=== PATIENT | female | born 1995 | race Asian ===

== ENCOUNTER 2024-03-25 15:53 | Outpatient (CLI) | payer OTHER ==
[2024-03-25 16:22] LABS: BASOPHILS % (AUTO) 0.3 %; EOSINOPHILS # (AUTO) 0.4 10^3/uL (0.0-0.7); HCT - HEMATOCRIT 30.1 % (37.0-47.0); HGB - HEMOGLOBIN 10.3 g/dL (12.0-16.0); LYMPHOCYTES # (AUTO) 2.9 10^3/uL (1.5-3.5); LYMPHOCYTES % (AUTO) 29.5 %; MEAN CORPUSCULAR HEMOGLOBIN 31.2 pg (27.0-31.0); MEAN CORPUSCULAR HGB CONC 34.2 g/dL (32.0-36.0); MEAN CORPUSCULAR VOLUME 91.2 fL (81.0-99.0); MEAN PLATELET VOLUME 8.8 fL (7.9-10.8); MONOCYTES # (AUTO) 0.5 10^3/uL (0.0-1.0); MONOCYTES % (AUTO) 5.2 %; NEUTROPHILS # (AUTO) 5.9 10^3/uL (1.5-6.6); NEUTROPHILS % (AUTO) 60.7 %; PLT - PLATELET COUNT 294 10^3/uL (130-450); WHITE BLOOD COUNT 9.8 x10^3/uL (4.8-10.8)
[2024-03-25 16:29] LABS: BILIRUBIN,URINE NEGATIVE (NEGATIVE); GLUCOSE, URINE (UA) NEGATIVE (NEGATIVE); KETONES,URINE (UA) NEGATIVE (NEGATIVE); LEUKOCYTE ESTERASE, URINE NEGATIVE (NEGATIVE); NITRITE,URINE NEGATIVE (NEGATIVE); OCCULT BLOOD,URINE NEGATIVE (NEGATIVE); PH,URINE 6.5 PH (5.0-7.5); PROTEIN,URINE NEGATIVE (NEGATIVE); UROBILINOGEN,URINE 0.2 (NORMAL) E.U./dL (NORMAL)
[2024-03-25 16:36] LABS: CLARITY,URINE CLEAR (CLEAR)
[2024-03-25 16:44] LABS: RBC,URINE None Seen /HPF (0-5); SQUAMOUS EPITHELIAL CELL,UR FEW Squamous (<= Few); WBC,URINE 0-3 /HPF (0-5)
[2024-03-25 16:45] LABS: BACTERIA,URINE None Seen /HPF (None Seen)
[2024-03-26 01:09] LABS: HIV SCREEN 4TH GENERATION Non Reactive (Non Reactive)
[2024-03-26 04:10] LABS: HBsAG SCREEN Negative (Negative)
[2024-03-26 05:15] LABS: RPR Non Reactive (Non Reactive)
[2024-03-26 09:11] LABS: VARICELLA-ZOSTER AB IGG 159 index (Immune >165)
[2024-03-26 23:09] LABS: HCV AB Non Reactive (Non Reactive)
== END 2024-03-25 15:54 | disposition home or self-care (01) ==
LOC: LAB 15:53
PROVIDERS: ATTEND Obstetrics & Gynecology
DX: Z34.00 Encounter for supervision of normal first pregnancy, unspecified trimester (principal); Z36.89 Encounter for other specified antenatal screening
CPT/HCPCS: 36415; 81001; 85025; 86592; 86762; 86787; 86803; 86850; 86900; 86901; 87086; 87340; 87389

== ENCOUNTER 2024-03-26 17:11 | Outpatient (CLI) | payer OTHER ==
--- NOTE | 2024-03-27 07:10 | Ultrasound Report ---
PROCEDURE: OB 1st Trimester w/TV INDICATIONS: POSITIVE TEST OUTSIDE/PRIOR DATING DATA: Last menstrual period (LMP): 01/25/2024. LMP-based estimated date of delivery (JEANETTE): 10/31/2024. First dating scan (date and location): Today's exam. Estimated date of delivery (JEANETTE) from first dating scan: 11/08/2024. TECHNIQUE: Real-time scanning was performed of the fetus and maternal pelvic organs, with image documentation. Endovaginal scanning was also performed to better visualize the fetus and maternal ovaries. COMPARISON: None. FINDINGS: Intrauterine gestational sac present. Embryo: Present, measuring 1.28 cm, corresponding to 7 weeks 4 days Heart rate: 157 bpm. Other: Small perigestational hemorrhage measuring 1.1 x 0.6 x 1.5 cm. Measurement variability in dating: +/- 4 weeks by LMP, +/- 7 days by mean sac diameter (use before 6 weeks gestation if crown-rump length not able to be measured), +/- 5 days by crown-rump length (6-12 weeks gestation). Maternal organs: Ovaries demonstrate a right-sided corpus luteum. IMPRESSION: Single living intrauterine at 7 weeks 4 days, JEANETTE of 11/08/2024 based on today's exam. Small perigestational hemorrhage. Reviewed by: Jak Henrdix MD on 03/27/2024 7:09 AM PDT Approved by: Jak Hendrix MD on 03/27/2024 7:09 AM PDT Station ID: [id number]
== END 2024-03-26 17:12 | disposition home or self-care (01) ==
LOC: DI 17:11
PROVIDERS: ATTEND Obstetrics & Gynecology
DX: O20.8 Other hemorrhage in early pregnancy (principal); Z3A.01 Less than 8 weeks gestation of pregnancy

== ENCOUNTER 2024-04-20 08:00 | Outpatient (CLI) | payer OTHER ==
[2024-04-20 20:57] LABS: CHLAMYDIA TRACHOMATIS DNA NEGATIVE (NEGATIVE); NEISSERIA GONORRHOEAE DNA NEGATIVE (NEGATIVE); TRICHOMONAS VAGINALIS DNA NEGATIVE (NEGATIVE)
== END 2024-04-20 23:59 | disposition home or self-care (01) ==
LOC: LAB.WC 08:00
PROVIDERS: ATTEND Obstetrics & Gynecology
DX: Z11.3 Encounter for screening for infections with a predominantly sexual mode of transmission (principal)
CPT/HCPCS: 87491; 87591; 87661

== ENCOUNTER 2024-04-21 12:21 | Outpatient (CLI) | payer OTHER | END 2024-04-21 12:22 | disposition home or self-care (01) | LOC: LAB 12:21 | PROVIDERS: ATTEND Obstetrics & Gynecology | DX: O99.011 Anemia complicating pregnancy, first trimester (principal) | CPT/HCPCS: 36415; 81599; 82728 ==

== ENCOUNTER 2024-05-17 13:47 | Outpatient (CLI) | payer OTHER ==
[2024-05-17 14:06] LABS: HCT - HEMATOCRIT 33.3 % (37.0-47.0); RED BLOOD COUNT 3.65 10^6/uL (4.20-5.40); RETICULOCYTE COUNT % (AUTO) 2.47 % (0.5-2.3)
[2024-05-17 14:25] LABS: ALBUMIN 4.5 g/dL (3.2-5.5); ALBUMIN/GLOBULIN RATIO 1.6 (1.0-2.2); BILIRUBIN,TOTAL 0.2 mg/dL (0.2-1.0); CALCIUM 9.7 mg/dL (8.5-10.3); CREATININE 0.7 mg/dL (0.6-1.3); POTASSIUM 4.1 mmol/L (3.5-4.5); TOTAL PROTEIN 7.3 g/dL (6.4-8.9)
[2024-05-17 14:35] LABS: THYROID STIMULATING HORMONE 2.51 uIU/mL (0.34-5.60)
[2024-05-17 20:54] LABS: ESTIMATED AVERAGE GLUCOSE 103 mg/dL (70-100); HEMOGLOBIN A1c% 5.2 % (4.27-6.07)
== END 2024-05-17 13:48 | disposition home or self-care (01) ==
LOC: LAB 13:47
PROVIDERS: ATTEND Obstetrics & Gynecology
DX: O99.012 Anemia complicating pregnancy, second trimester (principal)
CPT/HCPCS: 36415; 80053; 82105; 82607; 82746; 83036; 84443; 85014; 85045

== ENCOUNTER 2024-11-03 15:16 | Inpatient (IN) ==
[2024-11-03] MEDS ORDERED: miSOPROStoL 200 MCG TABLET BC PRN (16:30)
[2024-11-03] MEDS ORDERED: fentaNYL 100 MCG/2 ML VIAL IVP PRN (16:30)
[2024-11-03] MEDS ORDERED: NIFEdipine 10 MG CAPSULE PO PRN (16:30)
[2024-11-03] MEDS ORDERED: SODIUM CHLORIDE FLUSH 0.9% 10 ML SYRINGE IVP PRN (16:30)
[2024-11-03] MEDS ORDERED: LABETALOL 20 MG/4 ML SYRINGE IVP PRN ×3 (16:30)
[2024-11-03] MEDS ORDERED: TERBUTALINE 1 MG/ML VIAL SUBQ PRN (16:30)
[2024-11-03] MEDS ORDERED: TRANEXAMIC ACID IN NACL 1,000 MG/100 ML BAG IV PRN (16:30)
[2024-11-03] MEDS ORDERED: hydrALAZINE INJ 20 MG/ML VIAL IVP PRN (16:30)
[2024-11-03] MEDS ORDERED: miSOPROStoL 200 MCG TABLET PR PRN (16:30)
[2024-11-03] MEDS ORDERED: OXYTOCIN/SODIUM CHLORIDE 500 ML IV PRN (16:30)
[2024-11-03] MEDS ORDERED: lidocaine 1% 20 ML MDV ID PRN (16:30)
[2024-11-03] MEDS ORDERED: METHYLERGONOVINE 0.2 MG/ML VIAL IM PRN (16:30)
[2024-11-03] MEDS ORDERED: OXYTOCIN 10 UNIT/ML VIAL IM PRN (16:30)
[2024-11-03 16:37] LABS: BASOPHILS % (AUTO) 0.2 %; EOSINOPHILS # (AUTO) 0.1 10^3/uL (0.0-0.7); EOSINOPHILS % (AUTO) 1.1 %; HCT - HEMATOCRIT 35.6 % (37.0-47.0); HGB - HEMOGLOBIN 12.1 g/dL (12.0-16.0); LYMPHOCYTES # (AUTO) 2.5 10^3/uL (1.5-3.5); LYMPHOCYTES % (AUTO) 21.1 %; MEAN CORPUSCULAR HEMOGLOBIN 30.9 pg (27.0-31.0); MONOCYTES # (AUTO) 0.8 10^3/uL (0.0-1.0); MONOCYTES % (AUTO) 6.6 %; NEUTROPHILS # (AUTO) 8.2 10^3/uL (1.5-6.6); NEUTROPHILS % (AUTO) 70.1 %; PLT - PLATELET COUNT 229 10^3/uL (130-450); RED BLOOD COUNT 3.91 10^6/uL (4.20-5.40); RED CELL DISTRIBUTION WIDTH 12.8 % (12.0-15.0); WHITE BLOOD COUNT 11.7 x10^3/uL (4.8-10.8)
--- NOTE | 2024-11-03 16:43 | HISTORY & PHYSICAL EXAMINATION ---
Admit History Smoking Status: Never smoker Other Maternal History Other Maternal History: Patient is a 29-year-old G1, P0 at 39 weeks 2 days gestation due to rupture of membranes at term. She was seen earlier today in the office complaining of leaking fluid since approximately 1999 last night. No fever or chills. Had a positive ROM plus in the office today. No significant contractions.Denies loss of fluid. No MIRELES/BV or RUQP. No vaginal bleeding. Denies nausea and vomiting. Denies urinary urgency or dysuria. All other symptoms reviewed and were negative except per HPI. Course 29 yo G1 LMP: 01/25/2024 JEANETTE by LMP: 10/31/2024 Initial US Date 03/26/2024, US Age 7 weeks 4 days, JEANETTE by ultrasound: 11/08/2024 Final JEANETTE: 11/08/2024 by 7-week ultrasound, NOT consistent with LMP FOB Dav in [place]. -CF/SMA ordered, negative Cord around baby's neck on FAS. No intervention needed or piossible. Discussed normal movements. breast mass right: Normal appearing on imaging. Anemia normocytic 30% MCV 91. -Start iron supplementation - ferritin 04/21 124.4, hemoglobin electrophoresis negative. peripheral screen 33% and microcytic anemia. so better with the iron in her diet and vitamins. Pre- Weight: 117 BMI: 23.44 Blood type: O+ Antibody: Negative CBC: PLT 294 HCT 30.1 HGB 10.3 RUB: Immune VZV: Equivocal HBsAg: Negative HepC: NR RPR/AB-EIA: NR HIV: NR PAP: 01/08/2024 at [facility] (normal) GC/CT: 04/20/2024 HSV: denies Genetic testing: NIPT- negative, negative CF/SMA, AFP Negative Covid: 08/09/24 mls Flu:06/10 FAS: Placenta:anterior w/o previa Cord:3VC AJ:13.1cm EFW:334g 44th%ile 50gm OGCT: 123 3HR GTT: TDAP: 08/20/24 mls Breast Pump: 08/20/24 RSV 09/15/2024 3rd trimester H/H/PLT- 10.3/31.1/273 GBS:10/13 Negative RPR- Non reactive Delivery plan: Contraception: undecided HPI Current : Vital Signs Temperature 37.2 C 11/03/24 15:28 Pulse Rate 88 11/03/24 15:28 Respiratory Rate 17 11/03/24 15:28 Blood Pressure 123/72 11/03/24 15:28 Meds/Allgy Home Medications Ambulatory Orders Medication Instructions Recorded Confirmed doxylamine succinate 25 mg tablet 25 mg PO Q6H PRN 06/07/24 11/03/24 (Unisom (doxylamine)) vits no.126-ferrous fum 1 tab PO .daily 06/07/24 11/03/24 28 mg iron-folic acid 800 mcg tablet (Classic ) ferrous sulfate 325 mg (65 mg 325 mg PO .every other day 07/13/24 11/03/24 iron) tablet,delayed release Allergies Allergies Allergy/AdvReac Type Severity Reaction Status Date / Time clarithromycin (From Biaxin) Allergy Severe Edema Verified 11/03/24 16:32 PFSH Active Problems All Active Problems (Updated 11/03/24 @ 16:44 by Phillip Mckeon MD) Nuchal cord, single gestation (Acute) 39 weeks gestation of (Acute) Rupture of membranes with clear amniotic fluid (Acute) Supervision of normal (Acute) Breast mass, right (Acute) Anemia affecting (Acute) Medical History Medical History Encounter for supervision of normal first , unspecified trimester Anxiety Surgical History Surgical History Hx of wisdom tooth extraction Family History Family History Father Diabetes Mother High cholesterol Paternal grandmother Diabetes Breast cancer Paternal grandfather Non Hodgkin's lymphoma Social History Social History Smoking Status: Never smoker Second hand tobacco smoke exposure: No Do you dip or chew tobacco?: No Do you vape?: No Level: Independent History of Abuse: No ETOH Use: None Substance Use: denies use Are you sexually active?: Yes Control Method: None Are you following a diet prescribed by a doctor: No Are you following a special diet: No Review of Systems Status of ROS: 10 or more systems reviewed and unremarkable except as noted in history and below Physical Abdominal Exam Vital Signs: Temp Pulse Resp BP 37.2 C 88 17 123/72 11/03/24 15:28 11/03/24 15:28 11/03/24 15:28 11/03/24 15:28 Other Notes Labor Progress Note/Additional Text: General: Alert, oriented, no acute distress Head: Normal cephalic atraumatic Eyes: PERRLA, extraocular motions intact. Respiratory: Normal rate of respiration. No accessory muscle use, normal respiratory effort. Cardiovascular: Regular rate and rhythm Abdomen: Gravid, nontender, nondistended Extremities: Normal range of motion Neuro: Oriented x3. Normal movements Psych: Appropriate mood and affect. Normal judgment and insight SVE: FHT: 145 beats per baseline, moderate variability, accelerations present, no decelerations. [place]: Irregular Plan for Labor Plan For Labor I expect patient to be DC'd or transferred within 96 hours.: Yes Conclusion/Plan Problem List (1) Rupture of membranes with clear amniotic fluid: Plan: Rupture membranes last night. Admit to labor and delivery for induction. Misoprostol x 1 then oxytocin. Epidural at patient's request Monitor for signs of infection. (2) 39 weeks gestation of : Plan: As above (3) Supervision of normal : Plan: As above Qualifiers: Normal : normal first Trimester: third trimester Qualified Code(s): Z34.03 - Encounter for supervision of normal first , third trimester (4) Nuchal cord, single gestation: Plan: Nuchal cord seen on anatomy scan
[2024-11-03] MEDS: miSOPROStoL 100 MCG TABLET BC ONE (17:00)
--- NOTE | 2024-11-03 17:09 | ANESTHESIA PROCEDURE NOTE ---
Pre-Anesthesia VS, & Labs Diagnosis Surgical Diagnosis:: ROM, labor induction Procedure Procedure: Epidural for when desires Vitals Vital Signs: Temp Pulse Resp BP 37.2 C 88 17 123/72 11/03/24 15:28 11/03/24 15:28 11/03/24 15:28 11/03/24 15:28 NPO Last Fluid Intake: t/o day Is Patient ?: Yes Lab Results Current Lab Results: Laboratory Tests 11/03/24 16:20: WBC 11.7 H, RBC 3.91 L, Hgb 12.1, Hct 35.6 L, MCV 91.0, MCH 30.9, MCHC 34.0, RDW 12.8, Plt Count 229, MPV 10.0, Neut # (Auto) 8.2 H, Lymph # (Auto) 2.5, [place] # (Auto) 0.8, Eos # (Auto) 0.1, Baso # (Auto) 0.0, Absolute Nucleated RBC 0.00, Nucleated RBC % 0.0 Lab results reviewed: Yes 11/03/24 16:20 Meds/Allgy Home Medications Ambulatory Orders Medication Instructions Recorded Confirmed doxylamine succinate 25 mg tablet 25 mg PO Q6H PRN sleep 06/07/24 11/03/24 (Unisom (doxylamine)) vits no.126-ferrous fum 1 tab PO .daily 06/07/24 11/03/24 28 mg iron-folic acid 800 mcg tablet (Classic ) ferrous sulfate 325 mg (65 mg 325 mg PO .every other day 07/13/24 11/03/24 iron) tablet,delayed release Allergies Allergies Allergy/AdvReac Type Severity Reaction Status Date / Time clarithromycin (From Biaxin) Allergy Severe Edema Verified 11/03/24 16:32 PFSH Active Problems All Active Problems (Updated 11/03/24 @ 16:44 by Phillip Mckeon MD) Nuchal cord, single gestation (Acute) 39 weeks gestation of (Acute) Rupture of membranes with clear amniotic fluid (Acute) Supervision of normal (Acute) Breast mass, right (Acute) Anemia affecting (Acute) Medical History Medical History Encounter for supervision of normal first , unspecified trimester Anxiety Surgical History Surgical History Hx of wisdom tooth extraction Family History Family History Father Diabetes Mother High cholesterol Paternal grandmother Diabetes Breast cancer Paternal grandfather Non Hodgkin's lymphoma Social History Social History Smoking Status: Never smoker Second hand tobacco smoke exposure: No Do you dip or chew tobacco?: No Do you vape?: No Level: Independent History of Abuse: No ETOH Use: None Substance Use: denies use Are you sexually active?: Yes Control Method: None Are you following a diet prescribed by a doctor: No Are you following a special diet: No Anesthesia Exam (Expanded) Exam General: Alert, Oriented x3 and Cooperative Dental: WNL Mouth Openin Fingerbreadth Neck Mobility: Normal Mallampati classification: II Thyromental Distance: 4-6 cm Respiratory: Lungs clear, Normal breath sounds and No respiratory distress Cardiovascular: Regular rate Neurological: Normal speech Mental/Cognitive Status: Alert/Oriented X3 and Normal for patient Cognitive Status: Within normal limits Plan Problem List (1) Rupture of membranes with clear amniotic fluid: Plan: Rupture membranes last night. Admit to labor and delivery for induction. Misoprostol x 1 then oxytocin. Epidural at patient's request Monitor for signs of infection. (2) 39 weeks gestation of : Plan: As above (3) Supervision of normal : Plan: As above Qualifiers: Normal : normal first Trimester: third trimester Qualified Code(s): Z34.03 - Encounter for supervision of normal first , third trimester (4) Nuchal cord, single gestation: Plan: Nuchal cord seen on anatomy scan Plan Anesthesia Type: Epidural Consent for Procedure(s) Verified and Reviewed: Yes Code Status: Attempt Resuscitation ASA Classification ASA classification: 2-Mild systemic disease Is this case an emergency?: No
[2024-11-03] MEDS: SODIUM CHLORIDE FLUSH 0.9% 10 ML SYRINGE IVP SCH (18:50)
[2024-11-03] MEDS: LACTATED RINGERS 1,000 ML IV PRN (21:10)
[2024-11-03] MEDS: OXYTOCIN/SODIUM CHLORIDE 500 ML IV SCH (21:10)
[2024-11-04] MEDS ORDERED: LIDOCAINE 2%-EPI 1:100000 20 ML MDV ONE (02:42)
[2024-11-04] MEDS ORDERED: ROPIVACAINE 0.2% 200 MG/100 ML BAG EP ONE (02:43)
[2024-11-04] MEDS ORDERED: NALOXONE 0.4 MG/ML VIAL IVP PRN ×2 (03:40→12:55)
[2024-11-04] MEDS ORDERED: NALBUPHINE 10 MG/ML AMP IVP PRN (03:40)
[2024-11-04] MEDS ORDERED: ONDANSETRON 4 MG/2 ML VIAL IVP PRN (03:40)
[2024-11-04] MEDS ORDERED: METOCLOPRAMIDE 10 MG/2 ML VIAL IVP PRN (03:40)
[2024-11-04] MEDS ORDERED: diphenhydrAMINE INJ 50 MG/ML VIAL IVP PRN (03:40)
[2024-11-04] MEDS ORDERED: SODIUM CHLORIDE 0.9% 1,000 ML IY PRN (04:28)
--- NOTE | 2024-11-04 04:30 | PROVIDER PROGRESS NOTE ---
Labor Progress Note Uterine Monitoring Uterine Monitoring Mode: positive External toco Contraction Frequency (min/apart): 2-4 Monitoring Monitor Mode: positive External ultrasound Heart Rate Baseline: 150 Heart Rate Variability: positive Minimal (0-5 bpm) Decelerations: positive Variable and Recurrent (>50% x20 min) Vaginal Exam Dilation (in cm): 3 Effacement (%): 80 Station: -2 Cervical Position: Anterior Labor Progress Note Labor Progress Note/Additional Text: Patient seen epidural for pain control. Continue gush of fluid. Began having repetitive variable decelerations with minimal variability. Initially improved upon decreasing oxytocin and position changes, but returned. Consented to IUPC placement for monitoring of contractions. Will start amnioinfusion if variable decelerations continue. Category 2, but accelerations and moderate variability after IUPC placement.
[2024-11-04] MEDS: ePHEDrine 50 MG/ML VIAL IVP PRN (05:29)
[2024-11-04] MEDS: LACTATED RINGERS 500 ML IV ONE (08:50)
[2024-11-04] MEDS: ROPIVACAINE 0.2% 200 MG/100 ML BAG EP PRN (11:40)
--- NOTE | 2024-11-04 12:48 | PHARMACY PROGRESS NOTE ---
Best Possible Medication History Admit Date and Time: 11/03/24 1630 Home Medications Medication Instructions Recorded Confirmed Type doxylamine succinate 25 mg tablet 25 mg PO Q6H PRN sleep 06/07/24 11/03/24 History (Unisom (doxylamine)) vits no.126-ferrous fum 1 tab PO .daily 06/07/24 11/03/24 History 28 mg iron-folic acid 800 mcg tablet (Classic ) ferrous sulfate 325 mg (65 mg 325 mg PO .every other day 07/13/24 11/03/24 History iron) tablet,delayed release Processed by: Nursing Medications reviewed in ED?: No Medication History completed: Yes Patient Interview: Completed [facility] Statement: As the person ultimately responsible for medication therapy, providers are able to order a medication from an existing home medication list in [facility] via the "Reconcile Routine" prior to Confirmation of that medication by aircraft life support fitter. Such practice is discouraged except when the physician, in their clinical judgment, deems that a medical need exists for a medication without regard to previous use.
[2024-11-04] MEDS ORDERED: WITCH HAZEL/GLYCERIN 1 PAD TOP PRN (12:55)
[2024-11-04] MEDS ORDERED: NIFEdipine 10 MG CAPSULE PO PRN (12:55)
[2024-11-04] MEDS ORDERED: OXYTOCIN/SODIUM CHLORIDE 500 ML IV PRN (12:55)
[2024-11-04] MEDS ORDERED: LABETALOL 5 MG/1 ML 20 ML MDV IVP PRN (12:55)
[2024-11-04] MEDS ORDERED: hydrALAZINE INJ 20 MG/ML VIAL IVP PRN ×2 (12:55)
[2024-11-04] MEDS ORDERED: SIMETHICONE CHEW 80 MG TABLET PO PRN (12:55)
[2024-11-04] MEDS ORDERED: HYDROCORTISONE 1% CREAM 28 GM TUBE TOP PRN (12:55)
[2024-11-04] MEDS ORDERED: LABETALOL 20 MG/4 ML SYRINGE IVP PRN ×2 (12:55)
[2024-11-04] MEDS ORDERED: oxyCODONE 5 MG TABLET PO PRN (12:55)
--- NOTE | 2024-11-04 13:09 | DELIVERY NOTE ---
Delivery Note Labor Labor: positive Induced by oxytocin Infant Delivery Method Infant Delivery Method: positive Spontaneous vaginal delivery Cervical Ripening Method Cervical Ripening Method: positive Misoprostil Presentation Presentation: positive Vertex Nuchal Cord Nuchal Cord: positive None Amniotic Fluid Description Amniotic Fluid Description: positive Light meconium Episiotomy Type Episiotomy Type: positive None Laceration Laceration: positive None Delivery Outcome Delivery Date: 11/04/24 Delivery Outcome: positive Livebirth Cord Cord: positive 3 vessels Placenta Placenta: positive Intact and Spontaneous Estimated Blood Loss Estimated Blood Loss (in cc): 50 Post Delivery Events Post Delivery Events: positive No post delivery events Delivery Comments (Free Text/Narrative) Delivery Comments (Free Text/Narrative): I was called to the bedside for patient complete and pushing. I remained at bedside and pushed with her. She pushed with excellent effort. During , the head delivered to just below the eyes. We then waited until the next contraction for delivery of the remainder of the head. The anterior shoulder followed easily with maternal effort and gentle downward pressure followed by the posterior shoulder and the remainder of the body. The was placed on the mother's abdomen. The cord was clamped times two and cut after it stopped pulsating per Ngozi's request. Cord blood collected. Pitocin was started. The placenta was delivered intact. Excellent uterine tone noted. The perineum was inspected and intact.
[2024-11-04] MEDS: ACETAMINOPHEN 500 MG TABLET PO PRN (14:30)
[2024-11-04] MEDS: DOCUSATE SODIUM 100 MG CAPSULE PO SCH (20:56)
[2024-11-04] MEDS: IBUPROFEN 600 MG TABLET PO PRN (20:57)
[2024-11-05 01:00] VITALS: O2SAT 97
[2024-11-05] MEDS: ACETAMINOPHEN 500 MG TABLET PO PRN (01:04)
[2024-11-05] MEDS: VARICELLA VACCINE LIVE/PF 1,350 UNIT/0.5 ML VIAL SUBQ ONE (14:06)
[2024-11-05 14:11] VITALS: BP 112/88; TEMP 97.9
--- NOTE | 2024-11-05 17:06 | Labor Flowsheet ---
Labor Flowsheet Datetime Report Generated by CPN: 11/05/2024 17:05 Datetime: 11/05/2024 14:10 VITAL SIGNS NBP Sys/Nora/Mean (mmHg): 112 : 88 : 94 Pulse: 87 Datetime: 11/04/2024 14:18 Stage of : Datetime: 11/04/2024 13:51 PAIN Pain Scale: 0 Pain Presence: None/Denies Pain Type: N/A Datetime: 11/04/2024 12:52 Respirations: 16 Datetime: 11/04/2024 12:31 FHR Baseline Rate : 170 Variability: Minimal - Undetectable to <=5 bpm Category: Category II Comments: decels noted with pushing efforts. Provider and nursing staff at bedside. Datetime: 11/04/2024 12:15 UTERINE ACTIVITY Monitor Mode: External Frequency (min): 2-4 Duration (sec): 60-80 Pattern: Normal: <= 5 Contractions in 10 Minutes ASSESSMENT A Monitor Mode: External US Accelerations: 10X10 Datetime: 11/04/2024 12:00 Decelerations: Early; Late Datetime: 11/04/2024 11:29 SpO2 (%): 98 LaborFlag: Labor Datetime: 11/04/2024 11:15 VAGINAL EXAM Dilatation (cm): 10.0 Effacement (%): 100 Station: 1 Datetime: 11/04/2024 11:00 Temperature (C): 38.0 Temperature Route: Axillary Datetime: 11/04/2024 10:30 Resting Tone (Palpate): Relaxed Datetime: 11/04/2024 10:00 [place] Units (mmHg): 100 Datetime: 11/04/2024 09:08 MEDICATIONS Pitocin (milliunits): Increased to @ 4 Datetime: 11/04/2024 09:00 Monitor Interventions for FHR: Ultrasound Adjusted Actions for Decelerations: Side to Side; Pitocin Off; IV Bolus; Sterile Vaginal Exam; Blood P ressure; Provider Notified Datetime: 11/04/2024 08:49 Exam by: dr trupti COMMUNICATION Communication: RN at Bedside; Provider at Bedside Datetime: 11/04/2024 08:45 Patient Position/Activity: High Fowlers Communication Comments: Dr trupti Datetime: 11/04/2024 07:13 Patient Care Comments: peanut ball Datetime: 11/04/2024 07:12 Vaginal Bleeding: Normal Show Cervix, Consistency: Soft Cervix, Position: Midposition Datetime: 11/04/2024 07:00 Quality: Strong Resting Tone IUP (mmHg): 20 Pitocin Checklist: At Least 1 Acceleration of 15 bpm x 15 Seconds in 30 Minutes or Adequate Variabi lity; No More than 1 Late Deceleration Occurred in Past 30 Minutes; No More than 2 Variable Decelerat ions > 60 Seconds in Duration and decreasing >60 bpm in 30 minutes; No More than 5 Uterine Contractio ns in 10 Minutes for any 20 Minute Interval; Uterus Palpates Soft between Contractions; IUPC Resting Tone less than 25 mmHg Datetime: 11/04/2024 06:00 FHR Baseline Changes: No Baseline Change Datetime: 11/04/2024 04:21 Vaginal Exam Comments: IUPC placed Datetime: 11/04/2024 04:04 Provider Notified (Name): Dr Mckeon Notification Reason: Status Update; Status; Labor Status; Uterine Activity Nurse Giving Report: RNC Spear SBAR Notable Communications: OB reviewed FHR tracing. SBAR Follow-up: OB provider coming in directly to assess pt and probable placement of IUPC. Datetime: 11/04/2024 04:01 Monitor Interventions for UA: [place] Adjusted Datetime: 11/04/2024 03:44 I/O Interventions: Enciso Cath Inserted Datetime: 11/04/2024 03:16 Epidural Procedure: Test Dose Datetime: 11/04/2024 03:11 PROCEDURE TIME OUT Procedure Verify: Correct Patient Identity; Correct Side and Site are Marked; Accurate Procedure Co nsent Form; Agreement on Procedure to be Done; Correct Patient Position; Relevant Images and Results are Properly Labeled and Displayed; Addressed Need to Administer Antibiotics or Fluids for Irrigation ; Safety Precautions Based on Patient History or Medication Use ANESTHESIA Epidural Positioning: Sitting Anesthesia Comments: start of procedure Datetime: 11/04/2024 02:20 Membrane Status: Ruptured Membranes Rupture Method: Spontaneous Amniotic Fluid Color: Clear Amniotic Fluid Amount: Large Membrane Comments: forebag SROM Datetime: 11/03/2024 19:00 Contraction Comments: irritability noted Datetime: 11/03/2024 18:00 Pain Relief Measures: Comfort Measures Datetime: 11/03/2024 17:12 Membranes Ruptured Date/Time: 11/02/2024 20:00 Amniotic Fluid Odor: Normal Cervical Ripening Agents: Cytotec @ Datetime: 11/03/2024 17:00 Medication Comments: buccal Datetime: 11/03/2024 16:20 PATIENT CARE IV/Blood Work: IV Started; Labs Drawn with IV Start; IV Saline Locked
--- NOTE | 2024-11-05 22:08 | Discharge Summary ---
Discharge Summary Admit Date: 11/03/24 Discharge Date: 11/05/24 Discharging Provider: Katia Menjivar Code Status: Attempt Resuscitation DIAGNOSES Admission Diagnoses: PROM at term. Discharge Diagnoses with Status of Each Condition: vaginal delivery HPI History of Present Illness: First baby, presents with ROM since 1999 the night before. Admitted for induction. uncomplicated. HOSPITAL COURSE Hospital Course: Patient was admitted. labor induced with miso x 1 and then oxytocin. She got into labor and requested epidural which was placed. Once completely dilated she pushed well and delivered without complication. Baby girl Emma had Apgars of 8/9. no tears of the perineum. Emma weighed 3398 gram and was 50 cm long. Ngozi is breast feeding and that is going well. She was varicella immunity equivacol so was given a varicella vaccine before discharge. Post course was unremarkable and she was discharged home on ppd #1. ALLERGIES Allergies Allergy/AdvReac Type Severity Reaction Status Date / Time clarithromycin (From Biaxin) Allergy Severe Edema Verified 11/03/24 16:32 MEDICATIONS Ambulatory Orders Medication Instructions Recorded Confirmed doxylamine succinate 25 mg tablet 25 mg PO Q6H PRN sleep 06/07/24 11/03/24 (Unisom (doxylamine)) vits no.126-ferrous fum 1 tab PO .daily 06/07/24 11/03/24 28 mg iron-folic acid 800 mcg tablet (Classic ) ferrous sulfate 325 mg (65 mg 325 mg PO .every other day 07/13/24 11/03/24 iron) tablet,delayed release acetaminophen 500 mg tablet 500 - 1,000 mg (1 - 2 x 500 mg) PO 11/05/24 Q8HR PRN Mild Pain Or Fever>38c(100.4f) #20 tabs docusate sodium 100 mg capsule 100 mg PO BID PRN constipation #30 11/05/24 caps ibuprofen 600 mg tablet 600 mg PO Q6HR PRN Moderate Pain 11/05/24 (Level 4-6) #30 tabs PHYSICAL EXAM AT DISCHARGE General Appearance: positive No acute distress Cardiovascular: positive Regular rate & rhythm Abdomen: positive Non-tender LABS 11/03/24 16:20 FOLLOW UP Follow Up: in clinic on 11/11. pelvic rest. TIME SPENT Time Spent in Discharge (Minutes): 20 Discharge Plan Discharge Patient Disposition: Home, Self Care Condition: Good Prescriptions: New acetaminophen 500 mg Tablet 500 - 1,000 mg PO Q8HR PRN (Reason: Mild Pain Or Fever>38c(100.4f)) Qty: 20 0RF docusate sodium 100 mg Capsule 100 mg PO BID PRN (Reason: constipation) Qty: 30 0RF ibuprofen 600 mg Tablet 600 mg PO Q6HR PRN (Reason: Moderate Pain (Level 4-6)) Qty: 30 0RF Continued Unisom (doxylamine) 25 mg tablet 25 mg PO Q6H PRN (Reason: sleep ) Classic 28 mg iron- 800 mcg tablet 1 tab PO .daily ferrous sulfate 325 mg (65 mg iron) tablet,delayed release (DR/EC) 325 mg PO .every other day Activity Restrictions: pelvic rest 6 weeks Diet: Regular Print Language: Italian Patient Instructions: Breastfeed How To, Vaginal
== END 2024-11-05 14:15 | disposition home or self-care (01) | DRG 807 ==
LOC: WFO 15:16 → FBP 15:20
PROVIDERS: ADMIT Obstetrics & Gynecology; ATTEND Obstetrics & Gynecology
DX: O69.81X0 Labor and delivery complicated by cord around neck, without compression, not applicable or unspecified; Z3A.39 39 weeks gestation of pregnancy; O26.899 Other specified pregnancy related conditions, unspecified trimester; Z37.0 Single live birth; Z23 Encounter for immunization; O76 Abnormality in fetal heart rate and rhythm complicating labor and delivery; N89.8 Other specified noninflammatory disorders of vagina